=== PATIENT | male | born 1990 | race Asian ===

== ENCOUNTER 2017-01-18 11:22 | Inpatient (IN) | payer OTHER ==
[2017-01-18 12:40] LABS: Hematocrit 45 % (42-52); Mean Corpuscular HGB Conc 34 g/dl (31-36); Mean Corpuscular Hemoglobin 31 pg (27-31); Mean Corpuscular Volume 92 fL (80-94); Mean Platelet Volume 10 um3 (7.4-10.4); Red Blood Count 4.89 10^6/ul (4.0-5.4); Red Cell Distribution Width 13 % (10.5-15); White Blood Count 6.9 10^3/ul (3.5-10.8)
[2017-01-18 12:51] LABS: ALT 33 U/L (7-52); AST 48 U/L (13-39); Albumin 4.4 g/dL (3.2-5.2); Alkaline Phosphatase 51 U/L (34-104); Anion Gap 9 mmol/L (2-11); BUN/Creatinine Ratio 11.1 (8-20); Blood Urea Nitrogen 9 mg/dL (6-24); CO2 Carbon Dioxide 26 mmol/L (22-32); Calcium 9.3 mg/dL (8.6-10.3); Chloride 100 mmol/L (101-111); EGFR Non-African American 114.3 (>60); Globulin 3.3 g/dL (2-4); Glucose 104 mg/dL (70-100); Potassium 4.2 mmol/L (3.5-5.0); Sodium 135 mmol/L (133-145); Total Protein 7.7 g/dL (6.4-8.9)
[2017-01-18 13:01] LABS: Acetaminophen < 15 mcg/mL; Alcohol < 10 mg/dL (<10); Salicylate < 2.50 mg/dL (<30)
[2017-01-18 13:17] LABS: TSH (Thyroid Stimulating Horm) 1.16 mcIU/mL (0.34-5.60)
[2017-01-18 15:01] LABS: Urine Bilirubin Negative (Negative); Urine Glucose Negative (Negative); Urine Nitrite Negative (Negative)
[2017-01-18 15:25] LABS: Benzodiazepine Urine Screen None Detected (None Detect)
--- NOTE | 2017-01-18 21:04 | ED ---
Monico Epperson Alfonso, scribed for Peter Sanz MD on 01/18/17 at 1239 . Psychiatric Complaint - HPI Summary HPI Summary: This patient is a 26 year old M BIBA 945 to [facility] with a chief complaint of SI since a few days ago. He states I took 5-10 Benadryl to fall asleep the night before. The patient rates the pain 0/10 in severity. Symptoms aggravated by nothing. Symptoms alleviated by nothing. Patient denies pain and substance use today. - History Of Current Complaint Chief Complaint: [facility]ental[facility] Time Seen by Provider: 01/18/17 12:25 Hx Obtained From: Patient Onset/Duration: Sudden Onset, Lasting Days, Still Present Timing: Constant Aggravating Factor(s): Nothing Alleviating Factor(s): Nothing Has Suicidal: Reports: Thoughts - Allergies/Home Medications Allergies/Adverse Reactions: Allergies Allergy/AdvReac Type Severity Reaction Status Date / Time No Known Allergies Allergy Verified 02/12/15 14:44 Home Medications: Home Medications Azelastine HCl 0.1 % BOTH NARES DAILY PRN 01/18/17 [History Confirmed 01/18/17] PMH/Surg Hx/FS Hx/Imm Hx Endocrine/Hematology History: Denies: Hx Diabetes Cardiovascular History: Denies: Hx Hypertension, Hx Pacemaker/ICD History: Denies: Hx Renal Disease Sensory History: Denies: Hx Hearing Aid Psychiatric History: Denies: Hx Panic Disorder Infectious Disease History: No Infectious Disease History: Denies: Traveled Outside the [place] in Last 30 Days - Family History Known Family History: Positive: Diabetes, Other - Cancer - Social History Alcohol Use: Occasionally Substance Use Type: Reports: None Hx Tobacco Use: No Review of Systems Negative: Fever Positive: Other - Negative pain Neurological: Other - SI All Other Systems Reviewed And Are Negative: Yes Physical Exam Triage Information Reviewed: Yes Vital Signs On Initial Exam: Initial Vitals Temp Pulse Resp BP Pulse Ox 99.4 F 104 20 123/75 99 01/18/17 11:56 01/18/17 11:56 01/18/17 11:56 01/18/17 11:56 01/18/17 11:56 Vital Signs Reviewed: Yes Appearance: Positive: Well-Appearing, No Pain Distress Skin: Positive: Warm, Skin Color Reflects Adequate Perfusion, Dry Head/Face: Positive: Normal Head/Face Inspection Eyes: Positive: Normal ENT: Positive: Normal ENT inspection Neck: Positive: Supple, Nontender Respiratory/Lung Sounds: Positive: Clear to Auscultation, Breath Sounds Present Cardiovascular: Positive: RRR Abdomen Description: Positive: Nontender, Soft Bowel Sounds: Positive: Present Musculoskeletal: Positive: Normal Neurological: Positive: Normal, Sensory/Motor Intact, Alert, Oriented to Person Place, Time, CN Intact II-III Psychiatric: Positive: Normal, Affect/Mood Appropriate Diagnostics - Vital Signs Vital Signs Temp Pulse Resp BP Pulse Ox 01/18/17 11:56 99.4 F 104 20 123/75 99 - Laboratory Lab Results: Lab Results 01/18/17 01/18/17 01/18/17 Range/Units 12:08 12:08 14:30 WBC 6.9 (3.5-10.8) 10^3/ul RBC 4.89 (4.0-5.4) 10^6/ul Hgb 15.0 (14.0-18.0) g/dl Hct 45 (42-52) % MCV 92 (80-94) fL MCH 31 (27-31) pg MCHC 34 (31-36) g/dl RDW 13 (10.5-15) % Plt Count 227 (150-450) 10^3/ul MPV 10 (7.4-10.4) um3 Neut % (Auto) 79.6 (38-83) % Lymph % (Auto) 12.8 L (25-47) % [place] % (Auto) 6.5 (1-9) % Eos % (Auto) 0.5 (0-6) % Baso % (Auto) 0.6 (0-2) % Absolute Neuts (auto) 5.5 (1.5-7.7) 10^3/ul Absolute Lymphs (auto) 0.9 L (1.0-4.8) 10^3/ul Absolute Monos (auto) 0.4 (0-0.8) 10^3/ul Absolute Eos (auto) 0 (0-0.6) 10^3/ul Absolute Basos (auto) 0 (0-0.2) 10^3/ul Absolute Nucleated RBC 0.01 10^3/ul Nucleated RBC % 0.1 Sodium 135 (133-145) mmol/L Potassium 4.2 (3.5-5.0) mmol/L Chloride 100 L (101-111) mmol/L Carbon Dioxide 26 (22-32) mmol/L Anion Gap 9 (2-11) mmol/L BUN 9 (6-24) mg/dL Creatinine 0.81 (0.67-1.17) mg/dL Est GFR ( Amer) 147.0 (>60) Est GFR (Non-Af Amer) 114.3 (>60) BUN/Creatinine Ratio 11.1 (8-20) Glucose 104 H (70-100) mg/dL Calcium 9.3 (8.6-10.3) mg/dL Total Bilirubin 1.60 H (0.2-1.0) mg/dL AST 48 H (13-39) U/L ALT 33 (7-52) U/L Alkaline Phosphatase 51 (34-104) U/L Total Protein 7.7 (6.4-8.9) g/dL Albumin 4.4 (3.2-5.2) g/dL Globulin 3.3 (2-4) g/dL Albumin/Globulin Ratio 1.3 (1-3) TSH 1.16 (0.34-5.60) mcIU/mL Urine Color Urine Appearance Urine pH (5-9) Ur Specific [place] (1.010-1.030) Urine Protein (Negative) Urine Ketones (Negative) Urine Blood (Negative) Urine Nitrate (Negative) Urine Bilirubin (Negative) Urine Urobilinogen (Negative) Ur Leukocyte Esterase (Negative) Urine Glucose (Negative) Urine Ascorbic Acid (Negative) Salicylates < 2.50 (<30) mg/dL Urine Opiates Screen None detected (None Detect) Acetaminophen < 15 mcg/mL Ur Barbiturates Screen None detected (None Detect) Ur Phencyclidine Scrn None detected (None Detect) Ur Amphetamines Screen None detected (None Detect) U Benzodiazepines Scrn None detected (None Detect) Urine Cocaine Screen None detected (None Detect) U Cannabinoids Screen None detected (None Detect) Serum Alcohol < 10 (<10) mg/dL 01/18/17 Range/Units 14:30 WBC (3.5-10.8) 10^3/ul RBC (4.0-5.4) 10^6/ul Hgb (14.0-18.0) g/dl Hct (42-52) % MCV (80-94) fL MCH (27-31) pg MCHC (31-36) g/dl RDW (10.5-15) % Plt Count (150-450) 10^3/ul MPV (7.4-10.4) um3 Neut % (Auto) (38-83) % Lymph % (Auto) (25-47) % [place] % (Auto) (1-9) % Eos % (Auto) (0-6) % Baso % (Auto) (0-2) % Absolute Neuts (auto) (1.5-7.7) 10^3/ul Absolute Lymphs (auto) (1.0-4.8) 10^3/ul Absolute Monos (auto) (0-0.8) 10^3/ul Absolute Eos (auto) (0-0.6) 10^3/ul Absolute Basos (auto) (0-0.2) 10^3/ul Absolute Nucleated RBC 10^3/ul Nucleated RBC % Sodium (133-145) mmol/L Potassium (3.5-5.0) mmol/L Chloride (101-111) mmol/L Carbon Dioxide (22-32) mmol/L Anion Gap (2-11) mmol/L BUN (6-24) mg/dL Creatinine (0.67-1.17) mg/dL Est GFR ( Amer) (>60) Est GFR (Non-Af Amer) (>60) BUN/Creatinine Ratio (8-20) Glucose (70-100) mg/dL Calcium (8.6-10.3) mg/dL Total Bilirubin (0.2-1.0) mg/dL AST (13-39) U/L ALT (7-52) U/L Alkaline Phosphatase (34-104) U/L Total Protein (6.4-8.9) g/dL Albumin (3.2-5.2) g/dL Globulin (2-4) g/dL Albumin/Globulin Ratio (1-3) TSH (0.34-5.60) mcIU/mL Urine Color Yellow Urine Appearance Clear Urine pH 6.0 (5-9) Ur Specific [place] 1.012 (1.010-1.030) Urine Protein Negative (Negative) Urine Ketones 2+ H (Negative) Urine Blood Negative (Negative) Urine Nitrate Negative (Negative) Urine Bilirubin Negative (Negative) Urine Urobilinogen Negative (Negative) Ur Leukocyte Esterase Negative (Negative) Urine Glucose Negative (Negative) Urine Ascorbic Acid * H (Negative) Salicylates (<30) mg/dL Urine Opiates Screen (None Detect) Acetaminophen mcg/mL Ur Barbiturates Screen (None Detect) Ur Phencyclidine Scrn (None Detect) Ur Amphetamines Screen (None Detect) U Benzodiazepines Scrn (None Detect) Urine Cocaine Screen (None Detect) U Cannabinoids Screen (None Detect) Serum Alcohol (<10) mg/dL Result Diagrams: 01/18/17 12:08 01/18/17 12:08 Lab Statement: Any lab studies that have been ordered have been reviewed, and results considered in the medical decision making process. Course/Dx - Course Course Of Treatment: Mr. Encarnacion was medically cleared and evaluated by the [facility]. He accepted an offer of voluntary admission. - Differential Dx/Clinical Impression Provider Diagnosis: Depression with suicidal ideation Discharge - Discharge Plan Condition: Stable Disposition: PSYCHIATRIC FACILITY-[facility] [place] The documentation as recorded by the Monico sorenson Alfonso accurately reflects the service I personally performed and the decisions made by , Peter Sanz MD.
[2017-01-18] MEDS ORDERED: Al Hydrox/Mg Hydrox/Simet LIQ* 30 ML UDC PO PRN (21:15)
[2017-01-18] MEDS ORDERED: Acetaminophen TAB* 325 MG PO PRN (21:15)
[2017-01-19] MEDS: Vitamin THERAPEUTIC TAB PO SCH (11:47)
[2017-01-19] MEDS ORDERED: hydrOXYzine HCL TAB* 10 MG PO PRN (15:22)
[2017-01-19] MEDS: Fluticasone NASAL SPRAY 50MCG* 16 gm SPRAY BTL BOTH NARES SCH (16:19)
[2017-01-19] MEDS: Cetirizine* 10 MG TAB PO SCH (16:20)
--- NOTE | 2017-01-19 22:24 | HP ---
HISTORY AND PHYSICAL: DATE OF ADMISSION: 01/19/17 SUPERVISING PSYCHIATRIST: Dr. Sotero David* (dictated by PATI Ramirez) . JUSTIFICATION FOR ADMISSION: The patient was brought to the emergency department on 9.45 status. He had endorsed suicidal ideation when he went to [facility] yesterday. He took approximately 10 Benadryl tabs and it is unclear at this time whether or not this was an attempt to suicide. CHIEF COMPLAINT: "I am super depressed." HISTORY OF PRESENT ILLNESS: The patient is a 26-year-old male, who prefers to go by the name Ponce. He reports that he has had increasing depressed mood approximately for 2 years. He states that he had an increase in depressed mood most recently in the last week. He states that he has been overwhelmed with relationship stressors. 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 In the last week, she emotionally was pushing him away and then broke up with him on Wednesday. Apparently, she is also seeing another person already. Ponce states that he is worried about her all the time due to her multiple medical problems and he ruminates about their relationship. He states that he was having trouble not thinking about Madyson and trying to continue to be friends with her. He states that he just wanted to sleep and took multiple Benadryl tablets. He denies that this was a suicide attempt. 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 The patient endorses depressed mood. He endorses fatigue, decreased concentration, and anxiety. He denies suicidal ideation currently. He denies history of aggression or violence. He denies a history of van or psychosis. He states that he wants to get back on track to graduate in February, although he will not be able to make a presentation tomorrow due to being in the hospital and not being prepared for the presentation. The patient states that he has a job offer in [employer] pending his completion of his master's program in February. PAST PSYCHIATRIC HISTORY: The patient denies previous psychiatric history and has not seen counselor or psychiatrist. He denies any previous psychopharmacology. 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 He denies history of head injury or seizures. PAST SURGICAL HISTORY: Repair of his right first toe after accidentally dropping a concrete block on it. MEDICATIONS: No current medications. He has been prescribed Flonase and Claritin in the recent past. ALLERGIES: AMOXICILLIN, diarrhea. PRIMARY CARE PROVIDER: [facility]. FAMILY PSYCHIATRIC HISTORY: "None that I know off." PERSONAL/SOCIAL HISTORY: The patient states he was raised in [facility]. He and his family moved to [place], [place] when he was a senior in high school. He attended the [employer] for undergraduate education. 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 He denies alcohol or other substance use. REVIEW OF SYSTEMS: Negative for a fever. Constitutional: Negative. Denies headache or double vision. The patient reports a frequent dry cough. He denies sore throat, chest pain, difficulty breathing. He denies abdominal pain , nausea, diarrhea, or constipation. He reports that he vomits due to coughing at times. He denies difficulty ambulating, enlarged lymph nodes, rashes, fever , or change in mentation. PHYSICAL EXAMINATION GENERAL APPEARANCE: Positive, well appearing, no pain or distress. VITAL SIGNS: Most recent vital signs: Temp 99.0, pulse 92, respiratory rate 16 , O2 sat 100%, BP 122/55. HEENT: Head and face: Normal head and face inspection. Eyes: Normal EOMI, PERRL. ENT: Positive. Normal ENT inspection. NECK: Positive, supple, and nontender. Trachea midline. RESPIRATORY: Lung sounds clear to auscultation. Breath sounds present. Dry cough noted. CARDIOVASCULAR: Heart regular rate and rhythm. Pulses are symmetrical in both upper and lower extremities. MUSCULOSKELETAL: Normal strength. ROM intact. NEUROLOGICAL: Normal, sensory motor intact. Alert and oriented x3. Normal gait. SKIN: Positive, warm, and dry. Skin color reflects adequate perfusion. MENTAL STATUS EXAMINATION: The patient is thin male, dressed in his own clothing. He appears stated age. He is cooperative and talkative, answers questions fully. He is alert and oriented x3. His concentration is good. His memory is 3/3. His mood is "depressed." His affect is constricted. Speech is soft with rapid rhythm, articulate. Thought process is circumstantial in regards to relationship with recent ex-girlfriend, so overinclusive with details. Content of thought, preoccupations in regards to relationship stressors. He denies AV hallucinations, depersonalization, delusions. He denies SI or HI. His insight is fair. His judgement is fair. His fund of knowledge is excellent. LABORATORY DATA: Obtained in the emergency department, CBC was grossly unremarkable. CMP, chloride 100, glucose 104, bilirubin 1.6, and AST 48. Urinalysis, positive for ketones. Toxicology negative for salicylates, acetaminophen, and alcohol and urine drug screen was negative. DIAGNOSES: Adjustment disorder with depressed mood, rule out major depressive disorder, rule out generalized anxiety disorder. 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 While there, he scored significantly due to depressive symptoms and questionable recent suicide attempt with Benadryl. He endorses stressors including recent breakup of relationship. He also endorses significant attachment to this person resulting in procrastinating of his thesis work. The patient reports he is now motivated to return to academic responsibilities and pursue graduation in February as previously planned. PLAN: Admit to adult behavioral services unit on voluntary status. Code status is full. Safety checks every 15 minutes. The patient is encouraged to participate in supportive milieu, individual sessions with staff, and psychoeducational groups. Do not see the need for antidepressant medications at this time. We will obtain an MMPI for diagnostic clarification. Estimated length of stay is 3 to 5 days. Discharge planning will include [facility]. MARY LOU WARREN, PATI [id number]/CPS #: [id number] RUBIO
[2017-01-20 07:55] VITALS: BP 91/57
[2017-01-20] MEDS: Cetirizine* 10 MG TAB PO SCH (09:26)
[2017-01-20] MEDS: Vitamin THERAPEUTIC TAB PO SCH (09:26)
[2017-01-20] MEDS: Fluticasone NASAL SPRAY 50MCG* 16 gm SPRAY BTL BOTH NARES SCH (09:27)
--- NOTE | 2017-01-20 16:08 | PN ---
Subjective - Subjective Service Type: 34712 Hosp care 25 min moderate complexity Subjective: Patient reports feeling "great" since this morning. Sessions with staff and psychoeducational groups have been helpful to him. He states he has identified that he tends to "get myself in situations to be depressed." He has been reflecting on relationships and his goals for himself. He submitted a 72-hour notice at 1230 and requests to be able to leave tomorrow, . He continues to have frequent dry cough. He identifies that he had been prescribed inhalers in the past. He states he had an allergic reaction to Advair. He is receptive to suggestion to f/u with [facility] to pursue a referral to a eating disorder specialist or an leach tank tender. Objective - Appearance Appearance: Thin Framed Dysmorphic Features: No Hygiene: Normal Grooming: Well Kept - Behavior Psychomotor Activities: Normal Exhibits Abnormal Movement: No - Attitude and Relatedness Attitude and Relatedness: Cooperative Eye Contact: Good - Speech Quality: Unpressured Latencies: Normal Quantity: Appropriate - Mood Patient's Decription of Mood: "Great" - Affect Observed Affect: Good Affect Consistent with: Euthymia - Thought Process Patient's Thought Process: Coherent, Goal Directed Thought Content: No Passive Wish, No Suicidal Planning, No Homicidal Ideation, No Paranoid Ideation - Sensorium Experiencing Hallucinations: No, Sensorium is Clear Type of Hallucinations: Visual: No, Auditory: No, Command: No - Impulse Control Impulse Control: Intact - Insight and Judgement Insight and Judgement: Good - Group Participation Particating in Group Activities: Yes - Medication Management Medication Management Adherence: Yes Assessment - Assessment Merits Inpatient Hospitalization: For Immediate Safety, For Stabilization, For Discharge Planning Inpatient DSM-IV Dx: adjustment d/o with depressed mood; seasonal allergies; r/ o asthma, environmental allergies Clinical Impression: 26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 Plan - Plan Treatment Plan: Name: SAMIA COELLO Birthdate: 1990 [id number] continue acute intensive psychiatric treatment. decrease observation to q30min and allow staff pass and computer privileges. patient placed 72-hour notice at 1230 and requests to be discharged tomorrow, 01/21/17. Continued Medication Management: Start Medication Medications: Current Medications Acetaminophen (Tylenol Tab*) 650 mg PO Q4H PRN PRN Reason: PAIN or TEMP > 101 F Al Hydrox/Mg Hydrox/Simethicone (Maalox Plus*) 30 ml PO Q4H PRN PRN Reason: INDIGESTION Albuterol (Ventolin Hfa Inhaler*) 1 puff INH Q4H PRN PRN Reason: SOB/WHEEZING Cetirizine HCl (Zyrtec*) 10 mg PO DAILY [facility] PRN Reason: Protocol Last Admin: 01/20/17 09:26 Dose: 10 mg Diphenhydramine HCl (Benadryl Po*) 50 mg PO Q6H PRN PRN Reason: INSOMNIA Fluticasone Propionate (Flonase Nasal [place] 50mcg*) 2 spray BOTH NARES DAILY [facility] Last Admin: 01/20/17 09:27 Dose: 2 spray Hydroxyzine HCl (Atarax Tab*) 10 mg PO Q4H PRN PRN Reason: ANXIETY Multivitamins (Theragran Tab*) 1 tab PO DAILY [facility] Last Admin: 01/20/17 09:26 Dose: 1 tab - Discharge Plan Discharge Plan: Outpatient Follow Up Outpatient Program: Counseling/Psych Services at [facility]
[2017-01-20] MEDS: Albuterol HFA INHALER* 8 gm MDI INH PRN (16:25)
[2017-01-20] MEDS: hydrOXYzine HCL TAB* 10 MG PO PRN ×2 (16:52→21:23)
[2017-01-21] MEDS: Fluticasone NASAL SPRAY 50MCG* 16 gm SPRAY BTL BOTH NARES SCH (09:02)
[2017-01-21] MEDS: Cetirizine* 10 MG TAB PO SCH (09:02)
[2017-01-21] MEDS: Albuterol HFA INHALER* 8 gm MDI INH PRN (09:03)
[2017-01-21] MEDS: Vitamin THERAPEUTIC TAB PO SCH (09:28)
--- NOTE | 2017-01-21 10:27 | DS ---
Subjective - Subjective Service Types: 53345 Hosp DC Day Mgmt simple under 30 min Discharge Date: 01/21/17 Subjective: Pt reports much improved mood and denies suicidal ideation or passive wish. He states he is looking forward to returning to his academic program and has motivation to pursue goals for himself. Patient reports benefit from speaking with various staff members and programming. Objective - Appearance Appearance: Thin Framed Dysmorphic Features: No Hygiene: Normal Grooming: Well Kept - Behavior Psychomotor Activities: Normal Exhibits Abnormal Movement: No - Attitude and Relatedness Attitude and Relatedness: Cooperative Eye Contact: Good - Speech Quality: Unpressured Latencies: Normal Quantity: Appropriate - Mood Patient's Decription of Mood: "Great" - Affect Observed Affect: Good Affect Consistent with: Euthymia - Thought Process Patient's Thought Process: Coherent, Goal Directed Thought Content: No Passive Wish, No Suicidal Planning, No Homicidal Ideation, No Paranoid Ideation - Sensorium Experiencing Hallucinations: No, Sensorium is Clear Type of Hallucinations: Visual: No, Auditory: No, Command: No - Level of Consciousness Level of Consciousness: Alert Orientation: Yes Intact, Yes Orientated to Time, Yes Orientated to Place, Yes Orientated to Person - Impulse Control Impulse Control: Intact - Insight and Judgement Insight and Judgement: Good - Group Participation Particating in Group Activities: Yes - Medication Management Medication Management Adherence: Yes Treatment Course & Assessment Clinical Course & Impression: 26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 He presented to [facility] with c/o cough and scored on depression questionnaire. He identified a recent passive attempt at suicide via overdosing on OTC benadryl. Patient was transported to ED and agreeable to admission to [facility]. He was admitted to [facility] on voluntary status. He participated in psychiatric interview and completed an MMPI. His presentation and testing supported diagnoses of adjustment disorder and interpersonal relationship conflict. Psychiatric medications are not indicated at this time; however, he is benefitting from use of hydroxyzine for environmental allergies and anxiety. He was receptive to psychoeducation and agrees to continue with outpatient therapy. Patient was safe on all checks and decreased observation to q30 min. He was allowed staff pass and access to computer for discharge planning. He reported relief from being able to coordinate with his professors. Patient submitted a 72-hour notice on 01/20/17 and requested to be discharged on 01/21/17. He reports plans to complete master 's program in February and move to [facility] where he has been offered a position in his field. Patient c/o frequent dry cough and responded well to hydroxyzine and a bronchodilator. He is encourged to f/u with [facility] to pursue a referral to a room service waiter/waitress or art specialist. Merits Inpatient Hospitalization: No Clear for Discharge: Adequate Clinical Respons, Acceptable Safety Profile Inpatient DSM-IV Dx: adjustment d/o with depressed mood; seasonal allergies; r/ o asthma, environmental allergies Discharge Planning - Discharge Planning Discharge Plan: Outpatient Follow Up Outpatient Program: Counseling/Psych Services at [facility] Recommendations for Continuing Care: Psychotherapy, Specialty Followup Medications: Current Medications Acetaminophen (Tylenol Tab*) 650 mg PO Q4H PRN PRN Reason: PAIN or TEMP > 101 F Al Hydrox/Mg Hydrox/Simethicone (Maalox Plus*) 30 ml PO Q4H PRN PRN Reason: INDIGESTION Albuterol (Ventolin Hfa Inhaler*) 1 puff INH Q4H PRN PRN Reason: SOB/WHEEZING Last Admin: 01/21/17 09:03 Dose: 1 puff Cetirizine HCl (Zyrtec*) 10 mg PO DAILY [facility] PRN Reason: Protocol Last Admin: 01/21/17 09:02 Dose: 10 mg Diphenhydramine HCl (Benadryl Po*) 50 mg PO Q6H PRN PRN Reason: INSOMNIA Fluticasone Propionate (Flonase Nasal [place] 50mcg*) 2 spray BOTH NARES DAILY ON LICENSE OF [facility] Last Admin: 01/21/17 09:02 Dose: 2 spray Hydroxyzine HCl (Atarax Tab*) 10 mg PO Q4H PRN PRN Reason: ANXIETY Last Admin: 01/20/17 21:23 Dose: 10 mg Multivitamins (Theragran Tab*) 1 tab PO DAILY ON LICENSE OF [facility] Last Admin: 01/21/17 09:28 Dose: Not Given The above were electronically prescribed to [facility] pharmacy. Discharge Planning: Prescriptions provided for discharge [X] Yes [] No Follow up care details as per social work arrangements. [facility] CAPS and primary care Patient response to discharge plan: [X] eager for discharge [X] agreeable with discharge plan [] ambivalent about discharge [] disagrees with discharge today
--- NOTE | 2017-01-21 19:22 | CONS ---
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 TEST ADMINISTERED: Ponce completed the [place] Multiphasic Personality Inventory-2 (MMPI-2). He was given feedback in individual conversation prior to his discharge. BEHAVIORAL OBSERVATIONS: Ponce was seen by this appeals writer in the aforementioned individual feedback session as well as in his attendance of cognitive behavioral group psychotherapies during the week. Ponce initially was rather seclusive to his room, describing how he was having difficulty accepting his placement on psychiatric unit and hence refused to engage in the social milieu or in educational program initially. He eventually described accepting what had happened and decided to become more active while on the unit. While he attended programming, he was spontaneous in conversation and appropriate behaviorally. He made good eye contact and presented with good affect. He interacted empathically with peers and staff and initiated insight-oriented conversation regarding depression and management of emotional duress. He discussed how to accept loss regarding his recent breakup with a girlfriend, and was responsive to clinical discussion addressing expression of thought and emotion. He also expressed compliance with recommendations to comply with continuing in outpatient care at the [facility] [[email or web address] on the [facility]. RELEVANT HISTORY: Ponce is a 26-year-old male, who described increasing difficulties with depression over the past 2 years, which became quite acute after a breakup with a girl he had been dating for only a few months. He described how his relationship had interfered with his academic performances in regards to completion of his master's thesis and that he found this very emotionally disorganizing for him. He apparently took multiple Benadryl tablets , although he denied this being a suicide attempt. His history reveals 1 previous suicide attempt in a similar context after he had found out that his girlfriend had been unfaithful to him. Upon admission, he endorsed depressed mood, feeling fatigued, and difficulties with concentration and anxiety. After his admission and engaging in treatment, he denied continuing thoughts of suicide and described several protective features. He describes prosocial future interests including already having secured a job offer in [employer] upon his completion of his anticipated graduation in February. TEST RESULTS: Ponce provides a moderately distressed profile on validity indicators on this administration of the MMPI-2, having elevated all 3 emotional duress scales between T scores of 70 and 93. His concomitant low scoring occurring on emotional coping and self-esteem scores where his T scores here are 37 and 32 respectively. He subsequently elevates all of the clinical indices save the masculine and feminine and hypomania scales. Discussion addressed his elevations on the neurotic triad with his high point score occurring on the depression scale (T=95), with concomitant elevations also occurring on the anxiety index and the schizophrenia scale. Discussion initially addressed the neurotic triad elevation encouraging Ponce to be more expressive in his thoughts and feelings about difficulties. This resonates with Ponce who describes trying to just ignore his problems without stopping to acknowledge the effects they have on him. Discussion also addressed the anxiety issue in the context of academic pressures primarily whose elevation on schizophrenia scale coming more in the context of recent breakup with his girlfriend and subsequent feelings of emotional alienation and of being alone. Further interventions addressed this elevation on the social introversion scale (T=75) with discussion here emphasizing the importance of maintaining social interests and socializing with peers. Ponce had spontaneously described his intentions of doing so in the context of group psychotherapy, and also described wanting to exercise and enjoy the comforts of his own home again. IMPRESSIONS AND RECOMMENDATIONS: Continuing therapies should continue to assess for dependent or histrionic traits in regards to concerns regarding characterological vulnerabilities on axis II. Ponce was responsive to discussion addressing management of depression in the behavioral activation context, and describes being anxious to return to his studies and see his friends again. He responded positively to other clinical discussion occurring in the group context about how to manage feelings about disappointments and loss. He impresses as being rather vulnerable to narcissistic injury in the context of being broken up with, but who is not. DIAGNOSTIC IMPRESSION: Depressive disorder, not otherwise specified, continue to rule out dependent histrionic traits on axis II. [id number]/[facility] [place] #: [id number] RUBIO
== END 2017-01-21 12:32 | disposition home or self-care (01) | DRG 881 ==
LOC: ED 11:22 → BSU 01-19 00:53
PROVIDERS: ADMIT Psychiatry & Neurology Psychiatry; ATTEND Psychiatry & Neurology Psychiatry
DX: F43.21 Adjustment disorder with depressed mood (principal); R45.851 Suicidal ideations; J45.909 Unspecified asthma, uncomplicated; Z72.89 Other problems related to lifestyle; Z83.3 Family history of diabetes mellitus; Z88.1 Allergy status to other antibiotic agents; Z91.5 Personal history of self-harm
CPT/HCPCS: 36415; 80053; 80307; 80320; 80329; 81003; 84443; 85025; 96102; 99222; 99232; 99238; A9270-GY; G0480